=== PATIENT | male | born 1950 ===

== ENCOUNTER 2017-03-26 14:13 | Emergency (ER) | payer MEDICARE, MEDICAID ==
[2017-03-26 14:58] VITALS: BMI 24.5
--- NOTE | 2017-03-26 16:26 | C.PDOC ---
History Of Present Illness Patient is a 66 y/o male sent to the ED by PMD for low potassium level found on routine blood work 1 week ago. Family states pt has had decreased appetite for the last 2 weeks. Patient also complains of intermittent right abdominal pain for the last 2 days. Otherwise, denies any n/v/d, fever, chills, or any other associated symptoms at this time. Time Seen by Provider: 03/26/17 16:25 Chief Complaint (Nursing): Abnormal Labs History Per: Patient History/Exam Limitations: no limitations Onset/Duration Of Symptoms: Days (2 weeks) Current Symptoms Are (Timing): Still Present Severity: None Pain Scale Rating Of: 0 Reports Recently: Treated By A Physician Recent travel outside of the [place]: No Additional History Per: Patient Past Medical History Reviewed: Historical Data, Nursing Documentation, Vital Signs Vital Signs: Last Vital Signs Temp 97.8 F 03/26/17 18:42 Pulse 60 03/26/17 18:42 Resp 16 03/26/17 18:42 BP 117/72 03/26/17 18:42 Pulse Ox 98 03/26/17 18:42 - Medical History PMH: HTN, Hypercholesterolemia Family History: States: Unknown Family Hx - Social History Hx Alcohol Use: No Hx Substance Use: No - Immunization History Hx Tetanus Toxoid Vaccination: No Hx Influenza Vaccination: Yes (09/2016) Hx Pneumococcal Vaccination: No Review Of Systems Except As Marked, All Systems Reviewed And Found Negative. Constitutional: Positive for: Other (decreased appetite). Negative for: Fever, Chills Cardiovascular: Negative for: Chest Pain, Palpitations, Edema, Light Headedness Respiratory: Negative for: Cough, Shortness of Breath Gastrointestinal: Positive for: Abdominal Pain (right abdomen). Negative for: Nausea, Vomiting, Diarrhea, Constipation Genitourinary: Negative for: Dysuria, Frequency, Incontinence, Hematuria Musculoskeletal: Negative for: Back Pain Skin: Negative for: Rash Neurological: Negative for: Weakness, Numbness, Headache, Dizziness Physical Exam - Physical Exam Appears: Non-toxic, No Acute Distress Skin: Normal Color, Warm, Dry Head: Atraumatic, Normacephalic Eye(s): bilateral: Normal Inspection, EOMI Neck: Normal ROM, Supple Chest: Symmetrical, No Tenderness Cardiovascular: Rhythm Regular, No Murmur Respiratory: Normal Breath Sounds, No Accessory Muscle Use, No Rales, No Rhonchi , No Wheezing Gastrointestinal/Abdominal: Normal Exam, Soft, No Tenderness, No Guarding, No Rebound Extremity: No Tenderness, No Pedal Edema, Capillary Refill (< 2 sec.), No Deformity, No Swelling, Other (chronic right arm and leg weakness, muscle atrophy from prior CVA) Neurological/Psych: Oriented x3, Normal Speech, Normal Cognition, No Other (no focal deficits) ED Course And Treatment - Laboratory Results Result Diagrams: 03/26/17 16:41 03/26/17 16:41 O2 Sat by Pulse Oximetry: 99 (on RA) Pulse Ox Interpretation: Normal Progress Note: Blood work, urinalysis, and abd & pelvis CT ordered and reviewed. Medical Decision Making Medical Decision Makin disc results w pt and family. pt is resting comfortably no distress. disc plan for f/u and rtr. Disposition - Disposition Disposition: HOME/ ROUTINE Disposition Time: 19:08 Condition: STABLE - Clinical Impression Clinical Impression: Abdominal pain - Scribe Statement The provider has reviewed the documentation as recorded by the Scribjose Johns All medical record entries made by the Sanjuibjose were at my direction and personally dictated by me. I have reviewed the chart and agree that the record accurately reflects my personal performance of the history, physical exam, medical decision making, and the department course for this patient. I have also personally directed, reviewed, and agree with the discharge instructions and disposition.
[2017-03-26 16:48] LABS: BASO # 0.1 K/uL (0.0-0.2); EOS # 0.6 K/uL (0.0-0.7); EOS % 6.5 % (0.0-4.0); HEMOGLOBIN 15.5 g/dL (12.0-18.0); LYMPH # 2.2 K/uL (1.0-4.3); LYMPH % 25.1 % (20.0-40.0); MEAN CORPUSCULAR HEMOGLOBIN 29.6 pg (27.0-31.0); MEAN CORPUSCULAR HGB CONC 32.9 g/dL (33.0-37.0); MEAN PLATELET VOLUME 7.3 fL (7.2-11.7); MONO # 0.8 K/uL (0.0-0.8); MONO % 9.1 % (0.0-10.0); NEUT # 5.1 K/uL (1.8-7.0); NEUT % 58.3 % (50.0-75.0); NRBC % 0.1 % (0.0-2.0); RBC 5.23 Mil/uL (4.40-5.90); RED CELL DISTRIBUTION WIDTH 13.3 % (11.5-14.5); WHITE BLOOD COUNT 8.8 K/uL (4.8-10.8)
[2017-03-26 16:51] LABS: URINE BILIRUBIN NEGATIVE (NEGATIVE); URINE BLOOD NEGATIVE (NEGATIVE); URINE CLARITY Clear (Clear); URINE COLOR Yellow (YELLOW); URINE GLUCOSE (UA) NORMAL (Normal); URINE LEUKOCYTE ESTERASE NEG Leu/uL (Negative); URINE NITRATE NEGATIVE (NEGATIVE); URINE PROTEIN NEGATIVE (NEGATIVE); URINE UROBILINOGEN NORMAL mg/dL (0.2-1.0)
[2017-03-26 16:58] LABS: ALBUMIN 4.1 g/dL (3.5-5.0)
[2017-03-26 17:01] LABS: AST/SGOT 28 U/L (17-59); GFR AFRICAN-AMERICAN > 60; GFR NON-AFRICAN AMERICAN > 60
[2017-03-26 17:02] LABS: ALB/GLOB RATIO 1.1 (1.0-2.1); ALT/SGPT 34 U/L (21-72); BLOOD UREA NITROGEN 9 mg/dL (9-20); CALCIUM 9.5 mg/dl (8.6-10.4); LIPASE 100 U/L (23-300)
[2017-03-26 17:07] LABS: OSMOLALITY,URINE 321 mosm/kg (300-1000)
[2017-03-26] MEDS ORDERED: Iohexol 300 100 ML IJ ONE (17:26)
--- NOTE | 2017-03-26 18:20 | CT ---
PROCEDURE: CT Abdomen and Pelvis with contrast HISTORY: Right lower quadrant abdominal pain COMPARISON: None. TECHNIQUE: Contrast dose: 100 cc Omnipaque 300 Radiation dose: Total exam DLP = 511.91 mGy-cm. This CT exam was performed using one or more of the following dose reduction techniques: Automated exposure control, adjustment of the mA and/or kV according to patient size, and/or use of iterative reconstruction technique. FINDINGS: LOWER THORAX: Large hiatal hernia LIVER: Hepatic steatosis. No focal masses. No intrahepatic bile duct dilatation or perihepatic ascites. GALLBLADDER AND BILE DUCTS: Unremarkable. PANCREAS: Unremarkable. No gross lesion or ductal dilatation. SPLEEN: Unremarkable. ADRENALS: Unremarkable. No mass. KIDNEYS AND URETERS: Unremarkable. No hydronephrosis. No solid mass. Incidental finding(s): Simple cyst left kidney only. VASCULATURE: Unremarkable. No aortic aneurysm. BOWEL: Unremarkable. No obstruction. No gross mural thickening. Incidental finding(s): Duodenal diverticulum. Caps APPENDIX: Normal appendix. PERITONEUM: Unremarkable. No free fluid. No free air. LYMPH NODES: Unremarkable. No enlarged lymph nodes. BLADDER: Unremarkable. REPRODUCTIVE: Unremarkable. BONES: No acute fracture. Old compression deformities T12 and L3. OTHER FINDINGS: Bilateral fat containing inguinal hernias. None. IMPRESSION: No significant or acute findings to account for/ related to the clinical presentation. Additional benign and/or incidental findings described above.
[2017-03-26 18:44] VITALS: BP 117/72; PULSE 60; RESP 16; TEMP 97.8
[2017-03-26 19:09] VITALS: O2SAT 99
== END 2017-03-26 19:24 | disposition home or self-care (01) ==
LOC: C.ER 14:13
DX: R10.9 Unspecified abdominal pain (principal)
CPT/HCPCS: 74177; 80053; 81001; 83690; 83930; 83935; 84300; 85025; 99283; Q9967

== ENCOUNTER 2017-05-10 06:45 | Day surgery (SDC) | payer MEDICARE, MEDICAID ==
[2017-05-10 07:12] VITALS: BMI 25.8
[2017-05-10] MEDS ORDERED: Propofol 10 mg/ml Inj (20 ML) ONE ×2 (09:20)
[2017-05-10] MEDS ORDERED: Lactated Ringer's 500 ML IV ONE (09:25)
[2017-05-10] MEDS ORDERED: Lactated Ringer's 500 ML IV SCH (10:00)
[2017-05-10 10:21] VITALS: TEMP 96.9
[2017-05-10 10:47] VITALS: O2SAT 100
[2017-05-10 10:50] VITALS: BP 119/62; PULSE 62; RESP 14
== END 2017-05-10 10:48 | disposition home or self-care (01) ==
LOC: C.ENDO 06:45
PROVIDERS: ATTEND Internal Medicine Gastroenterology
DX: K29.70 Gastritis, unspecified, without bleeding (principal); K26.9 Duodenal ulcer, unspecified as acute or chronic, without hemorrhage or perforation; R63.0 Anorexia; K44.9 Diaphragmatic hernia without obstruction or gangrene; K64.8 Other hemorrhoids; K57.90 Diverticulosis of intestine, part unspecified, without perforation or abscess without bleeding
CPT/HCPCS: 43239; 45378; 88305; J2704; J7120

== ENCOUNTER 2018-12-31 12:12 | Outpatient (CLI) | payer MEDICARE, MEDICAID | END 2018-12-31 12:13 | disposition home or self-care (01) | LOC: C.RADIC 12:12 | DX: I10 Essential (primary) hypertension (principal) ==